=== PATIENT | male | born 1945 | race Caucasian/White ===

== ENCOUNTER 2016-06-29 18:37 | Emergency (ER) | payer MEDICARE, OTHER | END 2016-06-29 20:50 | disposition home or self-care (01) | LOC: ER1 18:37 | DX: S22.31XA Fracture of one rib, right side, initial encounter for closed fracture (principal); E78.5 Hyperlipidemia, unspecified; Z79.899 Other long term (current) drug therapy; W01.0XXA Fall on same level from slipping, tripping and stumbling without subsequent striking against object, initial encounter; Y92.009 Unspecified place in unspecified non-institutional (private) residence as the place of occurrence of the external cause | CPT/HCPCS: 71101; 99283 ==